=== PATIENT | male | born 1940 | race Caucasian/White ===

== ENCOUNTER 2016-06-12 05:33 | Inpatient (IN) | payer MEDICARE, BC ==
[2016-06-01 10:29] LABS: BASOPHILS 0.2 %; BASOPHILS ABSOLUTE 0.01 10/3/uL (0.0-0.16); EOSINOPHILS 4.1 %; EOSINOPHILS ABSOLUTE 0.17 10/3/uL (0.0-0.53); HEMATOCRIT 39.8 % (40.0-51.0); HEMOGLOBIN 14.3 g/dL (13.6-17.8); IMMATURE GRANULOCYTES 0.2 %; IMMATURE GRANULOCYTES ABSOLUTE 0.01 10/3/uL (0.0-0.11); LYMPHOCYTES 15.6 %; LYMPHOCYTES ABSOLUTE 0.65 10/3/uL (0.67-4.30); MANUAL DIFF NO %; MEAN CORPUS HGB CONC 35.9 g/dL (32.0-36.0); MEAN CORPUSCULAR HEMOGLOB 32.4 pg (26.0-34.0); MEAN PLATELET VOLUME 9.3 fL (9.2-13.0); MONOCYTES 9.8 %; MONOCYTES ABSOLUTE 0.41 10/3/uL (0.21-1.20); NEUTROPHILS 70.1 %; NEUTROPHILS ABSOLUTE 2.93 10/3/uL (2.02-8.40); PLATELET COUNT 184 10/3/uL (150-400); RBC DISTRIBUTION WIDTH 12.7 % (12.0-16.0); RED CELL COUNT 4.42 10/6/uL (4.7-6.1); WHITE BLOOD CELLS 4.2 10/3/uL (4.5-10.5)
[2016-06-01 10:37] LABS: ASCORBIC ACID (UR NOT ORDER) 20 (NEG); BILIRUBIN, URINE NEGATIVE (NEG); KETONE, URINE NEGATIVE (NEG); LEUKOCYTE ESTERASE(NOT OR NEG (NEG); WBC (NOT ORDERED) (RFLEX) 1 (0-5)
[2016-06-01 10:45] LABS: BUN (BLOOD UREA NITROGEN) 19 MG/DL (6-23); CHLORIDE, SERUM 102 MMOL/L (96-112); CO2 (CARBON DIOXIDE) 29 MMOL/L (24-34); CREATININE 1.14 MG/DL (0.70-1.30); GFR AFRICAN AMERICAN 72 ML/MIN (>=60); GFR NON AFRICAN AMERICAN 62 ML/MIN (>=60); POTASSIUM, SERUM 4.1 MMOL/L (3.5-5.3); SODIUM, SERUM 141 MMOL/L (135-148)
[2016-06-01 10:46] LABS: GLUCOSE, SERUM 121 MG/DL (60-99)
--- NOTE | ~2016-06-12 | PREOPHP ---
PreOp History and Physical [address] [place]. [address] NAME: TIERNEY SHAY : 40 STATUS : DIS IN PAT#: [id number] AGE: 76 ADM/REG DATE : 06/12/16 MR#: [id number] REPORT SERV DATE: 07/04/16 DICTATED BY: HUMBERTO WEATHERS DATE: 07/04/16 REPORT STATUS : Draft TRANSCRIBED BY: DUANE DATE: 07/04/16 CHIEF COMPLAINT: Right renal mass. HISTORY OF PRESENT ILLNESS: Mr. Shay is a very pleasant 76-year-old male with a past history of head and neck cancer. He had an incidental finding of a T1b right renal mass on a PET scan. Treatment options included surveillance, ablation, and surgical removal. He is here for robotic-assisted laparoscopic right partial nephrectomy. He had some chronic kidney disease, and did receive kletsel dehe wintun-based chemotherapy in the past. PAST MEDICAL HISTORY: Head and neck cancer as detailed above. Right renal mass, diabetes, cataracts. SURGICAL HISTORY: None. ALLERGIES: PENICILLIN. MEDICATIONS: Reviewed and are listed on the chart. FAMILY HISTORY: Negative for genitourinary malignancy. SOCIAL HISTORY: He does not smoke, drink, or use illegal drugs. REVIEW OF SYSTEMS: A 12-point review of systems was performed. Pertinent positives are listed in the HPI. PHYSICAL EXAMINATION: VITAL SIGNS: Afebrile. Vital signs stable. GENERAL: No acute distress. He appears his stated age. HEENT: His head is normocephalic and atraumatic. LUNGS: Breathing is nonlabored. He is not in respiratory distress. CARDIAC: Pulse is regular in rate and rhythm. ABDOMEN: Soft, nontender, nondistended. NEURO: He is alert and oriented x3. EXTREMITIES: No cyanosis or edema. IMAGING: No new imaging. LABS: No new labs. ASSESSMENT AND PLAN: Mr. Shay is a T1b right renal mass. We will proceed with right laparoscopic robotic partial nephrectomy. Risks and benefits were discussed in detail. Consents were signed. JAIME/DUANE PreOp History and Physical [address] [place]. [address] NAME: TIERNEY SHAY : 40 STATUS : DIS IN PAT#: [id number] AGE: 76 ADM/REG DATE : 06/12/16 MR#: [id number] REPORT SERV DATE: 07/04/16 DICTATED BY: HUMBERTO WEATHERS DATE: 07/04/16 REPORT STATUS : Draft TRANSCRIBED BY: MODL DATE: 07/04/16 Humberto Weathers MD / [id number] CC: MD Satya Doe
--- NOTE | ~2016-06-12 | OP ---
Record Of Operation [facility] [address] [place] [place]. [address] NAME: TIERNEY SHAY SR : 40 STATUS : ADM IN PAT#: [id number] AGE: 76 ADM/REG DATE : 06/12/16 MR#: [id number] REPORT SERV DATE: 06/12/16 DICTATED BY: HUMBERTO WEATHERS DATE: 06/12/16 REPORT STATUS : Draft TRANSCRIBED BY: MODL DATE: 06/12/16 DATE OF PROCEDURE: 06/12/2016 TITLE OF OPERATIONS: 1. Right robot-assisted laparoscopic partial nephrectomy. 2. Intraoperative ultrasound of the right kidney. PREOPERATIVE DIAGNOSIS: Right renal mass. POSTOPERATIVE DIAGNOSIS: Right renal mass. INDICATIONS: Mr. Shay is a 76-year-old male with a T1b right renal mass. He received cabazon chemotherapy in the past. He has renal insufficiency. He is here for partial nephrectomy. ANESTHESIA: General. COMPLICATIONS: None. IMPLANTS: 16-Swiss Robles catheter, #10 round ETHAN drain. SPECIMEN: Right kidney tumor. NARRATIVE: The patient was brought to the operating room, identified by his wristband. General anesthesia was induced. Ancef was given for preoperative antibiotics. A 16-Swiss Robles catheter was placed. The balloon was inflated to 10 mL of sterile water. He was placed in a modified right flank position, secured to the bed with pads and tape. He was prepped and draped in sterile fashion. His abdomen was insufflated to pressure of 15 mmHg using a Veress needle. An 8 mm port was placed in the right upper quadrant under direct vision. The abdomen was inspected. There were no adhesions. A standard X-Y port placement was performed with four 8 mm ports on the right side of the body. A 12 mm port was placed in the supraumbilical position for enrichment assistant port, and a 5 mm port was placed in a subxiphoid position for a liver retracting port. The patient was rotated, the robot was docked. I began the operation by dropping the colon along the white line of Toldt exposing the retroperitoneum. A locking grasper was used to lift the liver cephalad once the adhesions had been taken down. The duodenum was identified and Kocherized sharply. Care was taken not to injure the duodenum. The IVC was identified. I lifted the kidney up off the psoas muscle. Care was taken to reflect the psoas fascia inferiorly. The gonadal vein was clipped and divided. The ureter was identified. It was not injured. Two renal arteries and a solitary renal vein were identified. The fatty tissue overlying the kidney was then sharply incised. The tumor was precisely identified. Ultrasound was performed of the right kidney intraoperatively using the robotic ultrasound probe. Documented images were taken. Once the ultrasound was performed, I deemed it best to perform a heminephrectomy. I identified the upper most point of the tumor, and scored the mucosa in a circumferential fashion. The arteries to the kidney were then clamped sequentially. I then performed a heminephrectomy on the right lower pole. The tumor and its associated tissues Record Of Operation [address] [place]. [address] NAME: TIERNEY SHAY : 40 STATUS : ADM IN PAT#: [id number] AGE: 76 ADM/REG DATE : 06/12/16 MR#: [id number] REPORT SERV DATE: 06/12/16 DICTATED BY: HUMBERTO WEATHERS DATE: 06/12/16 REPORT STATUS : Draft TRANSCRIBED BY: DUANE DATE: 06/12/16 were placed into a bag. Then, the base of the tumor was oversewn with two running 3-0 V-Loc sutures. The capsule was closed with interrupted 2-0 Vicryl sutures in a sliding Weck technique. The bulldogs were taken off the arteries. Ischemic time was less than 20 minutes. There was no ongoing bleeding. The bulldogs were placed into a bag. A Surgifoam dressing was placed over the defect. Gerota's fascia was reapproximated for additional support. The robot was undocked. A #10 flat ETHAN drain was placed through the inferior most robotic port. The ports were removed sequentially. The enrichment assistant port was enlarged with the skin and fascial levels, and the bag containing the tumor as well as the bag containing the robotic bulldogs were removed. The fascia was closed with 0 Monocryl suture in a figure of-eight fashion. The wounds were irrigated clear. The skin was closed with 4-0 Monocryl. A Dermabond dressing was placed. A TAP block was placed preoperatively. There were no complications. JAIME/DUANE Humberto Weathers MD / [id number] CC: Humberto Weathers MD
[~2016-06-12 05:33] MED LIST: ACTOS30 PO; CYANO1000T PO; FORTAMET500 MG PO; GLUCPH PO; PRILOSEC40 MG PO; TIMOLOL MAL0.5 % OPH; VIAGRA50 MG PO; XALAT OPH
[2016-06-12 11:32] LABS: BASOPHILS 0.1 %; BASOPHILS ABSOLUTE 0.01 10/3/uL (0.0-0.16); EOSINOPHILS 0.1 %; EOSINOPHILS ABSOLUTE 0.01 10/3/uL (0.0-0.53); HEMATOCRIT 36.1 % (40.0-51.0); HEMOGLOBIN 13.1 g/dL (13.6-17.8); IMMATURE GRANULOCYTES 0.2 %; IMMATURE GRANULOCYTES ABSOLUTE 0.02 10/3/uL (0.0-0.11); LYMPHOCYTES 5.3 %; LYMPHOCYTES ABSOLUTE 0.47 10/3/uL (0.67-4.30); MEAN CORPUS HGB CONC 36.3 g/dL (32.0-36.0); MEAN CORPUSCULAR HEMOGLOB 32.6 pg (26.0-34.0); MEAN CORPUSCULAR VOLUME 89.8 fL (80-100); MEAN PLATELET VOLUME 9.3 fL (9.2-13.0); MONOCYTES 2.9 %; MONOCYTES ABSOLUTE 0.26 10/3/uL (0.21-1.20); NEUTROPHILS 91.4 %; NEUTROPHILS ABSOLUTE 8.16 10/3/uL (2.02-8.40); PLATELET COUNT 144 10/3/uL (150-400); RBC DISTRIBUTION WIDTH 12.7 % (12.0-16.0); RED CELL COUNT 4.02 10/6/uL (4.7-6.1)
[2016-06-12 11:33] LABS: MANUAL DIFF NO %; WHITE BLOOD CELLS 8.9 10/3/uL (4.5-10.5)
[2016-06-12 11:44] LABS: CALCIUM, SERUM 8.7 MG/DL (8.5-10.4); CHLORIDE, SERUM 104 MMOL/L (96-112); CO2 (CARBON DIOXIDE) 29 MMOL/L (24-34); CREATININE 1.23 MG/DL (0.70-1.30); GFR AFRICAN AMERICAN 66 ML/MIN (>=60); GFR NON AFRICAN AMERICAN 57 ML/MIN (>=60); SODIUM, SERUM 141 MMOL/L (135-148)
[2016-06-12 11:45] LABS: BUN (BLOOD UREA NITROGEN) 13 MG/DL (6-23); GLUCOSE, SERUM 196 MG/DL (60-99)
[2016-06-13 07:34] LABS: BASOPHILS 0.1 %; BASOPHILS ABSOLUTE 0.01 10/3/uL (0.0-0.16); EOSINOPHILS 0 %; HEMOGLOBIN 12.1 g/dL (13.6-17.8); IMMATURE GRANULOCYTES 0.3 %; IMMATURE GRANULOCYTES ABSOLUTE 0.02 10/3/uL (0.0-0.11); LYMPHOCYTES 4.7 %; LYMPHOCYTES ABSOLUTE 0.37 10/3/uL (0.67-4.30); MEAN CORPUS HGB CONC 35.6 g/dL (32.0-36.0); MEAN CORPUSCULAR HEMOGLOB 31.8 pg (26.0-34.0); MEAN CORPUSCULAR VOLUME 89.2 fL (80-100); MEAN PLATELET VOLUME 9.5 fL (9.2-13.0); MONOCYTES 7.1 %; MONOCYTES ABSOLUTE 0.56 10/3/uL (0.21-1.20); NEUTROPHILS 87.8 %; NEUTROPHILS ABSOLUTE 6.95 10/3/uL (2.02-8.40); PLATELET COUNT 135 10/3/uL (150-400); RBC DISTRIBUTION WIDTH 12.3 % (12.0-16.0); RED CELL COUNT 3.81 10/6/uL (4.7-6.1); WHITE BLOOD CELLS 7.9 10/3/uL (4.5-10.5)
[2016-06-13 07:35] LABS: MANUAL DIFF NO %
[2016-06-13 07:47] LABS: BUN (BLOOD UREA NITROGEN) 14 MG/DL (6-23); CALCIUM, SERUM 7.8 MG/DL (8.5-10.4); CHLORIDE, SERUM 102 MMOL/L (96-112); CO2 (CARBON DIOXIDE) 27 MMOL/L (24-34); CREATININE 1.56 MG/DL (0.70-1.30); GFR AFRICAN AMERICAN 49 ML/MIN (>=60); GFR NON AFRICAN AMERICAN 43 ML/MIN (>=60); GLUCOSE, SERUM 163 MG/DL (60-99); POTASSIUM, SERUM 3.8 MMOL/L (3.5-5.3); SODIUM, SERUM 136 MMOL/L (135-148)
[2016-06-14 06:54] LABS: BASOPHILS 0.1 %; BASOPHILS ABSOLUTE 0.01 10/3/uL (0.0-0.16); EOSINOPHILS 0.1 %; EOSINOPHILS ABSOLUTE 0.01 10/3/uL (0.0-0.53); HEMATOCRIT 31.4 % (40.0-51.0); HEMOGLOBIN 11.4 g/dL (13.6-17.8); IMMATURE GRANULOCYTES 0.1 %; IMMATURE GRANULOCYTES ABSOLUTE 0.01 10/3/uL (0.0-0.11); LYMPHOCYTES 3.1 %; LYMPHOCYTES ABSOLUTE 0.26 10/3/uL (0.67-4.30); MEAN CORPUS HGB CONC 36.3 g/dL (32.0-36.0); MEAN CORPUSCULAR HEMOGLOB 32.5 pg (26.0-34.0); MEAN CORPUSCULAR VOLUME 89.5 fL (80-100); MEAN PLATELET VOLUME 9.3 fL (9.2-13.0); MONOCYTES 7.7 %; MONOCYTES ABSOLUTE 0.65 10/3/uL (0.21-1.20); NEUTROPHILS 88.9 %; NEUTROPHILS ABSOLUTE 7.45 10/3/uL (2.02-8.40); PLATELET COUNT 120 10/3/uL (150-400); RBC DISTRIBUTION WIDTH 12.2 % (12.0-16.0); RED CELL COUNT 3.51 10/6/uL (4.7-6.1); WHITE BLOOD CELLS 8.4 10/3/uL (4.5-10.5)
[2016-06-14 07:03] LABS: MANUAL DIFF NO %
[2016-06-14 07:05] LABS: BUN (BLOOD UREA NITROGEN) 14 MG/DL (6-23); CALCIUM, SERUM 8.2 MG/DL (8.5-10.4); CHLORIDE, SERUM 105 MMOL/L (96-112); CO2 (CARBON DIOXIDE) 23 MMOL/L (24-34); CREATININE 1.54 MG/DL (0.70-1.30); GFR AFRICAN AMERICAN 50 ML/MIN (>=60); GFR NON AFRICAN AMERICAN 43 ML/MIN (>=60); POTASSIUM, SERUM 3.9 MMOL/L (3.5-5.3); SODIUM, SERUM 135 MMOL/L (135-148)
[2016-06-14 07:06] LABS: GLUCOSE, SERUM 197 MG/DL (60-99)
[2016-06-14] MEDS ORDERED: PCET PO (11:11)
[2016-06-14] MEDS ORDERED: DSS PO (11:11)
[2016-08-31] MEDS ORDERED: VITAMIN B-121000 MC1 SL (14:38)
== END 2016-06-14 12:27 | disposition home or self-care (01) | DRG 658 ==
LOC: SDC/OF 05:33 → PACU 10:52 → 4SO 12:30
PROVIDERS: Urology
DX: D41.01 Neoplasm of uncertain behavior of right kidney (principal); R13.10 Dysphagia, unspecified; E11.9 Type 2 diabetes mellitus without complications; Z85.01 Personal history of malignant neoplasm of esophagus; Z87.891 Personal history of nicotine dependence; Z88.0 Allergy status to penicillin
CPT/HCPCS: 36415; 80048; 81001; 82570; 82962; 85025; 86850; 86900; 86901; 88305; 88307; 93005; A9270-GY; J0690; J1170; J2250; J2370; J2405; J2710; J2795; J3010